=== PATIENT | female | born 1970 | race Caucasian/White ===

== ENCOUNTER 2019-11-18 09:28 | Observation (INO) | payer OTHER ==
[~2019-11-18] VITALS: Ht 160 cm; Wt 113.4 kg
--- NOTE | ~2019-11-18 | HC ---
[facility] [place] [address] CONSULTATION Name: RODERICK MEDRANO [id number] Admission: 11/18/19 Attend Phys: Janusz Eller MD Discharge: 11/19/19 Date of : 74 Report #: [id number] THIS REPORT FOR: cc: JACQUELINE BAEZA MD Physician not on staff Js Heredia MD ~ CC: JACQUELINE Eller Physician staff DATE OF SERVICE: 11/19/2019 INFECTIOUS DISEASE CONSULTATION REASON FOR CONSULTATION: I was asked to evaluate concerning fever or leukocytosis. HISTORY OF PRESENT ILLNESS: The patient is a 49-year-old with history of recurrent urinary tract infections. Approximately 2 weeks ago, developed fever, chills, dysuria, hematuria, low back pain, seen in the outpatient clinic and given nitrofurantoin. While on this, she had further episodes of chills and fever. Was seen in the Emergency Room at [facility], given IV fluids and discharged on the same program with the addition of 5 days of prednisone. She completed a course of prednisone and was feeling somewhat better, then developed same symptoms again with chills, fever, myalgias, arthralgias and urinary frequency. She has had no further hematuria or dysuria. She has had no headache, pharyngitis symptoms, cough, sputum, nausea, vomiting or diarrhea. She has had no arthritis or rash. REVIEW OF SYSTEMS: A 14-point review of systems was negative other than what has been described above. ALLERGIES: PENICILLIN AND SULFA. Does tolerate cephalosporins. MEDICATIONS: As noted on her MAR, having been placed on ceftriaxone. She continues on Effexor, Lamictal, acyclovir, levothyroxine, Flonase, omeprazole, vitamin B complex, lactobacillus. PAST MEDICAL HISTORY: Hypothyroidism, depression, restless leg syndrome, fibromyalgia, urinary tract infection. FAMILY HISTORY: Negative for tuberculosis. SOCIAL HISTORY: Nonsmoker, no significant alcohol intake. [facility] [address] [place] [address] CONSULTATION Name: RODERICK MEDRANO [facility] [id number] Admission: 11/18/19 Attend Phys: Janusz Eller MD Discharge: 11/19/19 Date of : 74 Report #: [id number] PHYSICAL EXAMINATION: VITAL SIGNS: She is afebrile and hemodynamically stable. Pulse was in the 90s. GENERAL: She was sitting up at the side of her bed, in no acute distress. Moderately obese. SKIN: Without rash or decubitus. No palpable adenopathy. HEENT: Eyes, without scleral icterus or conjunctivitis. Mouth without mucositis. NECK: Supple. LUNGS: Clear to auscultation. HEART: Regular without appreciable murmur, gallop or rub. ABDOMEN: Soft, nontender, no hepatosplenomegaly or mass appreciated. She did have some mild discomfort in the suprapubic region. Mild tenderness to the left CVA region to percussion. No spinal tenderness. GENITAL AND RECTAL EXAMINATION: Not performed. EXTREMITIES: Without clubbing, cyanosis or edema. NEUROLOGIC: Cranial nerves intact. Strength in the upper and lower extremities was within normal limits and symmetric. Sensation is intact. Mood was normal. Mental status was normal. LABORATORY STUDIES: Reviewed. MICROBIOLOGY: Reviewed. CT scan of the chest, abdomen and pelvis was reviewed. IMPRESSION: A 49-year-old with recurrent rigors associated with low-grade fever, leukocytosis. Although, laboratory studies are inconclusive that at this point in time with no specific explanation evident, I would be most inclined to suspect upper urinary tract infection given the onset of her symptoms and the antibiotic choice. Following 24 hours with ceftriaxone, the patient has had no further episodes of chills or fever. Her white count has improved. CT scan did show an ovarian cystic lesion, left side. The patient does have a history of polycystic ovaries. This seems most consistent with that diagnosis. No other symptoms to suggest pelvic inflammatory disease. Other considerations would be viral process. Doubt connective tissue disorder or malignancy. Doubt drug reaction. RECOMMENDATIONS: We will continue with oral cephalosporin. Plan to treat another week outpatient and follow up with her primary care first of next week for repeat CBC. We would like her white count to normalize prior to discontinuation of her antibiotics. If she should have further symptoms develop, she will be [address] [address] CONSULTATION Name: RODERICK MEDRANO Room #: 200[facility] [place] Jaramillo#: [id number] Admission: 11/18/19 Attend Phys: Janusz Eller MD Discharge: 11/19/19 Date of : 74 Report #: [id number] reevaluated. Case was discussed with attending, nursing staff and fiance at the bedside. By: [id number] Js Heredia MD /nt
[2019-11-18 09:29] VITALS: BP 142/91
[2019-11-18] MEDS ORDERED: ACYCLOVIR 200200 MG PO (09:50)
[2019-11-18] MEDS ORDERED: EFFEXOR XR75 MG PO (09:50)
[2019-11-18] MEDS ORDERED: LAMICTAL200 MG PO (09:50)
[2019-11-18] MEDS ORDERED: LEVO-T100 MCG PO (09:51)
[2019-11-18] MEDS ORDERED: FLONASE 0.05%50 MCG NARES (09:51)
[2019-11-18] MEDS ORDERED: PROBIOTIC1 EAC2 PO (09:52)
[2019-11-18] MEDS ORDERED: B COMPLEX1 EACH PO (09:52)
[2019-11-18] MEDS ORDERED: OMEPRAZOLE40 MG PO (09:52)
[2019-11-18 10:05] LABS: HEMATOCRIT 44.7 % (37.0-47.0); HEMOGLOBIN 14.4 gm/dL (12.0-15.0); MCH 26.6 pg (26.0-34.0); MCHC 32.2 g/dL (28.0-37.0); MCV 82.6 fL (80.0-100.0); PLATELET COUNT 315 thou/uL (150-400); RBC 5.41 mil/uL (4.20-5.00); RDW 13.6 % (10.5-14.5); WBC 22.2 thou/uL (4.0-11.0)
[2019-11-18 10:17] LABS: CALCIUM 9.5 mg/dL (8.5-10.1); CREATININE 1.1 mg/dL (0.6-1.0); POTASSIUM 4.2 mmol/L (3.5-5.1)
[2019-11-18 10:52] LABS: ABSOLUTE NEUTROPHILS 20.2 thou/uL (1.4-8.2)
[2019-11-18 10:53] LABS: PLATELET ESTIMATE NORMAL
[2019-11-18 11:05] LABS: URINE BILIRUBIN NEGATIVE (Negative); URINE BLOOD NEGATIVE (Negative); URINE CLARITY CLEAR; URINE COLOR YELLOW; URINE GLUCOSE-RANDOM* NEGATIVE (Negative); URINE KETONES NEGATIVE (Negative); URINE LEUKOCYTES-REFLEX TRACE (Negative); URINE NITRITE-REFLEX NEGATIVE (Negative); URINE PROTEIN (DIPSTICK) NEGATIVE (Negative); URINE UROBILINOGEN 0.2 E.U./dl (0.2-1.0)
--- NOTE | 2019-11-18 12:34 | EKG ---
[facility] [place] [address] ELECTROCARDIOGRAM REPORT Name: RODERICK MEDRANO Room #: [facility]#: [id number] Admission: 11/18/19 Attend Phys: Discharge: Date of : 74 Report #: [id number] THIS REPORT FOR: cc: JACQUELINE BAEZA MD Physician not on staff Héctor Slater MD ~ THIS REPORT FOR: //name// [facility] ED Test Date: 2019-11-18 Test Time: 10:11:40 Pat Name: RODERICK MEDRANO Department: Room: Gender: F Grocery Cashier: TRACE : 1970 Requested By: Dolores Mayo Order Number: [id number] MD: Héctor Slater Measurements Intervals [place] Rate: 100 P: 40 DE: 140 QRS: -10 QRSD: 91 T: 56 QT: 340 QTc: 439 Interpretive Statements Sinus tachycardia Poor R-wave progression Left atrial enlargement Nonspecific ST-T wave changes Baseline wander in lead(s) V2 No previous ECG available for comparison Electronically Signed On 11-18-2019 12:16:23 DEPUTY PROGRAM MANAGER by Héctor Slater [email or web address] <ELECTRONICALLY SIGNED> By: Héctor Slater MD 11/18/19 1216 1011 1011 Héctor Slater MD /EPI
[2019-11-18 14:56] VITALS: BP 128/81
[2019-11-18 17:36] VITALS: BP 158/96
[2019-11-18 18:15] VITALS: BP 105/82
--- NOTE | 2019-11-18 18:52 | NUR ---
PT ARRIVED TO UNIT APPROX 1800. ALERT AND ORIENTED. DENIES PAIN AND SOA. VSS. SPOUSE AT BEDSIDE. INFO REGARDING POC THAT WAS AVAILBALE WAS SHARED WITH PT AND SPOUSE. ADMISSION IS NOT COMPLETE. NOC NURSE WILL BE INFORMED OF WHAT'S UNDONE. NO DISTRESS NOTED.
[2019-11-18 20:18] VITALS: BP 137/89
[2019-11-18] MEDS ORDERED: LAMOTRIGINE25 MG PO (22:48)
[2019-11-18] MEDS ORDERED: IBUPROFEN 600600 M1 PO (22:49)
[2019-11-19] VITALS (8 sets, daily range): BP systolic 114–146; BP diastolic 72–86
--- NOTE | 2019-11-19 05:19 | NUR ---
PT A&O X4 ABLE TO MAKE NEEDS KNOWN. C/O [place] X1 THIS SHIFT NEW ORDER OBTAINED FOR IBUPROFEN PER PT REQUEST. SR/SINUS TACH ON THE MONITOR. SBA WITH TRANSFERS CONT OF B&B. NO ISSUES OVERNITE
[2019-11-19 10:10] LABS: ABSOLUTE NEUTROPHILS 10.7 thou/uL (1.4-8.2); BASOPHILS 0.3 % (0.0-2.0); EOSINOPHILS 0.7 % (0.0-3.0); HEMATOCRIT 41.7 % (37.0-47.0); HEMOGLOBIN 13.3 gm/dL (12.0-15.0); LYMPHOCYTES 17.8 % (24.0-44.0); MCH 26.7 pg (26.0-34.0); MCHC 31.9 g/dL (28.0-37.0); MCV 83.7 fL (80.0-100.0); MONOCYTES 3.5 % (1.0-8.0); PLATELET COUNT 258 thou/uL (150-400); POLYS 77.7 % (36.0-66.0); RBC 4.98 mil/uL (4.20-5.00); RDW 13.6 % (10.5-14.5); WBC 13.9 thou/uL (4.0-11.0)
[2019-11-19 10:23] LABS: CALCIUM 8.5 mg/dL (8.5-10.1); POTASSIUM 4.2 mmol/L (3.5-5.1)
[2019-11-19 10:25] LABS: % SATURATION 15 % (20-39); IRON 51 ug/dL (50-170); TIBC 333 ug/dL (250-450)
--- NOTE | 2019-11-19 18:29 | NUR ---
PT CARE ASSUMED APPROXIMATELY 0700. PT ASSESSMENTS CHARTED. MEDICATONS CHARTED. PT IS TO BE DISCHARGED POST DR CONSULT. PT TELE AND IV REMOVED. VSS. PT IN NO DISTRESS.
--- NOTE | 2019-11-19 19:00 | NUR ---
PT DISCHARGED AT THIS TIME. SEEN BY DR BROTHERS AND DENIES QUESTIONS OR CONCERNS REGARDING [facility]. ESCORTED SELF OFF UNIT PER PERSONAL REQUEST.
[2019-11-21 15:07] LABS: URINE 5-HIAA 0.8 mg/L (Undefined); URINE 5-HIAA 1.1 mg/24 hr (0.0-14.9)
[2019-11-23 17:11] LABS: METANEPHRINE-PL 24 pg/mL (0-62); NORMETANEPHRINE - PL 519 pg/mL (0-145)
[2019-11-24 01:10] LABS: ADENOVIRUS Negative (Negative); INFLUENZA A Negative (Negative); INFLUENZA B Negative (Negative); METAPNEUMOVIRUS Negative (Negative); PARAINFLUENZA 1 Negative (Negative); PARAINFLUENZA 2 Negative (Negative); PARAINFLUENZA 3 Negative (Negative); RHINOVIRUS Negative (Negative); RSV A Negative (Negative); RSV B Negative (Negative)
== END 2019-11-19 19:02 | disposition home or self-care (01) ==
LOC: ER 09:28 → 2N 15:39 → EROBS 15:39 → 2N 15:39
PROVIDERS: Emergency Medicine Emergency Medical Services; ADMIT Internal Medicine
DX: R00.0 Tachycardia, unspecified (principal); G03.9 Meningitis, unspecified; N39.0 Urinary tract infection, site not specified; M79.7 Fibromyalgia; E03.9 Hypothyroidism, unspecified; G43.909 Migraine, unspecified, not intractable, without status migrainosus; G25.81 Restless legs syndrome; F32.9 Major depressive disorder, single episode, unspecified; Z85.89 Personal history of malignant neoplasm of other organs and systems; D72.829 Elevated white blood cell count, unspecified
CPT/HCPCS: 10081